=== PATIENT | female | born 1975 | race Caucasian/White ===

== ENCOUNTER 2016-11-13 18:52 | Inpatient (IN) | payer OTHER ==
[~2016-11-13] VITALS: Ht 162.6 cm; Wt 82.2 kg
--- NOTE | 2016-11-13 20:06 | NUR ---
RECEICED PT FROM [facility] FOR C/C OF BILAT LEG, BACK AND NECK PAIN. PT STATES THAT SHE STARTED TO HAVE BACK PAIN LAST FRIDAY THEN THE PAIN PROGESSED TO BOTH HER LEGS ON FRIDAY, SHE WENT TO HER DOCTOR AND FROM A CT SCAN THAT WAS DONE SHOWED LT KIDNEY CYST. PT WAS SENT HOME WITH PAIN MEDS BUT PAIN GROW PROGESSIVELY WORST AND WENT BACK TO HER DOCOTR AND DOCTOR INFORMED HER THAT SHE MAY POSSIBLY HAS MENIGITIS. PT IS A/O X4, SPEECH IS CLEAR AND ANSWERING QUESTION APPROPATELY. PT PLACED ON MONITOR, VS STABLE. WILL CONTINUE TO MONITOR.
[2016-11-13 20:52] LABS: BASOPHIL % 0.9 % (0-2); PLATELET COUNT 267 x10^3mcL (130-400); RED CELL DISTRIBUTION WIDTH 13.6 % (11.5-14.5)
[2016-11-13 20:58] LABS: UA SPECIFIC GRAVITY 1.025 (1.005-1.035); microscopic required? YES; urine erythrocyte TRACE (NEGATIVE)
[2016-11-13 21:09] LABS: CALCIUM 8.6 mg/dL (8.5-10.1); CARBON DIOXIDE 30.7 mmol/L (21-32); CHLORIDE SERUM 107 mmol/L (98-107); CREATININE SERUM 0.6 mg/dL (0.6-1.0); GFR1 > 60 mL/min; GLUCOSE SERUM 110 mg/dL (74-106); POTASSIUM SERUM 4.1 mmol/L (3.5-5.1); SODIUM SERUM 141 mmol/L (136-145)
[2016-11-13 21:14] LABS: ALBUMIN 3.5 g/dL (3.4-5.0); ALKALINE PHOSPHATASE 51 U/L (46-116); ALT/SGPT 13 U/L (14-59); AST/SGOT 10 U/L (15-37); BILIRUBIN TOTAL 0.4 mg/dL (0.20-1.00); TOTAL PROTEIN, SERUM 6.8 g/dL (6.4-8.2)
--- NOTE | 2016-11-13 21:35 | NUR ---
PT MEDICATED PER EMAR.
--- NOTE | 2016-11-13 23:13 | NUR ---
REPORT GIVEN TO MAYRA MORLEY. ALL QUESTIONS AND CONCERNS ADDRESSED AT THIS TIME.
[2016-11-13 23:30] VITALS: BP 129/51
--- NOTE | 2016-11-13 23:30 | NUR ---
RECEIVED PT FROM ED [facility]IA [facility], CAME IN DUE TO BACK PAIN THAT STARTED ON FRIDAY, THEN STARTED TO HAVE BLE PAIN ON FRIDAY AND NECK PAIN 2 DAYS AGO. AAOX4. C/O MILD DIZZINESS, MILD BLURRY VISION AND MILD SENSITIVITY TO LIGHT. NO SOB NOTED. DENIES CHEST PAIN/PRESSURE, SINUS BRADYCARDIA ON THE MONITOR. C/O MILD NAUSEA. K-PAD ON THE BACK. IV SITE PATENT AND INTACT. SIDE RAILS UPX2. CALL LIGHT ON REACH. ENDORSED
[2016-11-13 23:36] VITALS: Ht 162.6 cm; Wt 82.2 kg
--- NOTE | 2016-11-14 00:25 | NUR ---
PT C/O OF SEVERE BACK PAIN, MORPHINE 2MG VIA IVP ADMINISTERED.
[2016-11-14 00:48] LABS: CHOLESTEROL/HDL RATIO 3.1; MAGNESIUM 2.1 mg/dL (1.8-2.4); PHOSPHOROUS 3.7 mg/dL (2.5-4.9)
[2016-11-14 00:56] LABS: T3 TOTAL 0.98 ng/mL
[2016-11-14 01:13] LABS: FREE T4 0.94 ng/dL (0.76-1.46); FREE THYROXINE INDEX 2.7 ug/dL (1.4-4.5); T4(THYROXINE) 7.6 ug/dL (4.7-13.3)
--- NOTE | 2016-11-14 02:24 | NUR ---
ROUNDS MADE, PT ASLEEP, BREATHING EVEN AND UNLABORED, NO RESP DISTRESS NOTED, K-PAD IN PLACE.
--- NOTE | 2016-11-14 04:04 | NUR ---
PT AWAKE AND C/O OF SEVER BACK PAIN ALSO NAUSEOUS AT THIS TIME, DILAUDID 1MG AND ZOFRAN 4MG VIA IVP ADMINISTERED, WILL KEEP TO MONITOR.
--- NOTE | 2016-11-14 05:32 | NUR ---
PT ASLEEP BUT EASILY AROUSABLE, SLEPT ON AND OFF SINCE ADMITTED TO THE UNIT, K-PAD OFF THIS TIME PER PT REQUESTED, GAVE ONE TIME MORPHINE AND DILAUDID VIA IVP FOR BACK PAIN WITH GOOD RELIEF, NAUSEOUS AT TIMES, ZOFRAN GIVEN, NORCO AND FLEXERIL PO GIVEN THIS MORNING, NO DISTRESS NOTED, WILL KEEP TO MONITOR.
[2016-11-14 05:45] VITALS: BP 91/44
--- NOTE | 2016-11-14 07:30 | NUR ---
PATIENT AOX4, DENIES HEADACHE AT THIS TIME, SPEECH CLEAR ABLE TO MAKE NEEDS KNOWN. TELE 4, DENIES CP. LUNGS CTA, NO RESP DISTRESS NOTED ON RA. PERIPHERAL PULSES PALPABLE. BOWEL SOUNDS ACTIVE. KPAD NOTED TO BACK, STATES BACK PAIN RADIATING TO LOWER EXTREMITIES BUT TOLERABLE AT THIS TIME MEDICATIONS GIVEN DURING PRIOR SHIFT EFFECTIVE. SKIN INTACT. IV ACCESS TO RAC RUNNING NS INFUSING WELL SITE WNL CALL LIGHT WITHIN REACH.
[2016-11-14 08:41] VITALS: BP 96/45
--- NOTE | 2016-11-14 09:30 | NUR ---
DR PRICE AND MEDICAL TEAM AT BEDSIDE, INFORMED PATIENT THAT SHE WILL BE SEEN BY OMM DR MAN. PATIENT VERBALIZED UNDERSTANDING.
[2016-11-14 12:57] VITALS: BP 107/59
--- NOTE | 2016-11-14 16:38 | NUR ---
PATIENT STATES OMM DONE BY DOCTOR BUT NOW FEELING HEADACHE PAIN IN BACK OF HEAD NOT RELIEVED BY FLEXERIL, GETTING WORSE, AND PAIN TO LEGS. NORCO GIVEN. DR SHARMA MADE AWARE, STATES WILL ORDER LUMBAR PUNCTURE.
[2016-11-14 17:15] VITALS: BP 109/57
--- NOTE | 2016-11-14 18:15 | NUR ---
DR SOLIS AT BEDSIDE. PATIENT STATES NORCO EFFECTIVE FOR LEG PAIN AND HEADACHE BUT STILL SOME PERSISTENT HEADACHE. ALSO C/O CONSTIPATION. DR ORDERED CT HEAD AND MIRALAX/SENOKOT. WILL CONT TO MONITOR AND ENDORSE TO ABY NUNEZ.
[2016-11-14 20:00] VITALS: BP 108/55
--- NOTE | 2016-11-14 20:00 | NUR ---
PATIENT RECEIVED IN BED AWAKE,ALERT AND ORIENTED X4, SPEECH CLEAR, STILL COMPLAINED OF OFF AND ON HEADACHE, NECK PAIN AND STIFFNESS, PHOTOSENTIVE, OFF AND ON NAUSEA NO VOMITING.BREATHING EVEN AND UNLABORED BS CLEAR ALL AL, DENIES SOB, ON ROOM AIR SAT 98-99%. DENIES CHEST PAINS, HR=65BPM, RHYTHM REGULAR, TELE#4. ABDOMEN SOFT NON DISTENDED ACTIVE BS, STATED HAD BM, YESTERDAY, APPETITE FAIR. VOIDING FREELY, DENIES PAIN UPON URINATION. PATIENT STATED GENERALIZED WEAKNESS, ABLE TO TURN SELF IN BED INDEPENDENTLY. PATIENT INFORMED AND ADVICE TO CALL FOR ASSISTANCE WHEN NEEDS ARISES. SCD IN USE PEDAL PULSES STRONG, K=PAD IN USE TO HER BACK, COMPLAINED OF PAIN TO NECK,BACK WHCIH SHE RATED AT 3/10, WILL MONITOR. SAFETY/FALL PREC. MAINTAINED. PATIENT INFORMED ABOUT POC THIS SHIFT.
--- NOTE | 2016-11-14 21:20 | NUR ---
SCHEDULED MEDS ADMINISTERED,PATIENT INFORMED ABOUT EACHE MEDS ACTIONS AND PURPOSE PRIOR. ALSO COMPLAINED OF HEADACHE AND NECK, BACK PAIN RATED AT 5/10, THROBBING. MADE COMFORTABLE AND MEDICATED PRN.
[2016-11-14 21:26] VITALS: BP 100/56
--- NOTE | 2016-11-14 22:10 | NUR ---
CHECKED EFFECTIVENESS OF PAIN MEDS GIVEN, PATIENT SLEEPING BUT EASILY AWAKEN VERBALLY, STATED PAIN SUBSIDED TO 2/10, TOLERABLE. MADE COMFORTABLE IN BED. WILL CONTINUE TO MONITOR.
--- NOTE | 2016-11-14 23:41 | NUR ---
PATIENT ELIZA CALLED AND WANTED AND UPDATE OF HER 'S CONDITION,DR NEGRO MADE AWARE ABOUT THIS REQUEST.
--- NOTE | 2016-11-15 | NUR ---
ROUNDS MADE PATIENT RESTING COMFORTABLY THIS TIME NO S/S OF DISTRESS. EASILY AWAKEN WHEN NAME CALLED. OFFERED NO COMPLAINTS THIS TIME, PAIN REMAINED AT 2/10 . INFORMED ABOUT PAIN MANAGEMENT. SAFETY PREC MAINTAINED, SB ON THE MONITOR. HR ON THE HIGH 50'S. WILL CONTINUE TO MONITOR.
--- NOTE | 2016-11-15 04:33 | NUR ---
PATIENT COMPLAINED OF NECK, LOWER BACK PAIN, RATED AT 6/10, REQUESTED FOR NORCO TAB. MEDICATED PER PRN AND MADE COMFORTABLE IN BED. WILL CHECK EFFECTIVENESS.
[2016-11-15 05:18] VITALS: BP 107/59
--- NOTE | 2016-11-15 06:25 | NUR ---
PATIENT SLEPT WELL AND RESTED GOOD DURING THE SHIFT PER STATED. WAS MEDICATED X2 WITH NORCO FOR COMPLAINT OF BACK/NECK PAIN AND HEADACHE RECEIVED RELIEF, STILL COMPLAINED OF PHOTOSENSITIVITY. IV SITE NO SIGN OF INFILTRATION. SB-SR ON THE MONITOR. SAFETY/FALL PRECAUTIONS OBSERVED AND MAINTAINED. WILL ENDORSE CONTINUITY OF CARE TO INCOMING NURSE.
[2016-11-15 06:38] LABS: BASOPHIL % 0.7 % (0-2); CHLORIDE SERUM 108 mmol/L (98-107); CREATININE SERUM 0.6 mg/dL (0.6-1.0); GFR1 > 60 mL/min; GLUCOSE SERUM 79 mg/dL (74-106); PLATELET COUNT 209 x10^3mcL (130-400); POTASSIUM SERUM 4.3 mmol/L (3.5-5.1); RED CELL DISTRIBUTION WIDTH 13.5 % (11.5-14.5); SODIUM SERUM 142 mmol/L (136-145)
--- NOTE | 2016-11-15 07:16 | NUR ---
BEDSIDE REPORT AND INTRODUCTION PERFORMED WITH INCOMING NURSE MIGUELITO MOJICA.
--- NOTE | 2016-11-15 08:00 | NUR ---
PATIENT RECEIVED ALERT AND ORIENTED TIMES FOUR. PATIENT HAS BEEN RECEIVING NORCO FOR PAIN AND EFFECTIVE AT THIS TIME. PATIENT HAS BEEN OOB AND SHE HAS INTERMITTANT DIZZINESS AND HEADACHE. LUNGS ARE CLEAR AND ARE DIMINISHED BREATH SOUNDS. VITALS AT THIS TIME AT 97.1, 60, 18, 107/59, 96%. PATIENT HAS NOTED LABS OF BUN AT 6.0, GLUCOSE AT 110, AST AT 10, ALT AT 13, AND CA AT 8.0. PATIENT AHS NO STONES ON THE CT OF THE ABDOMEN AND IS NOTED WITH MODERATE STOOL IN THE COLON AND A SMAL RIGHT OVRIAN CYST. PATIENT HAS A MILD BULGING DISK TO THE L4-5, L5-S1. CT OF THE HEAD WAS NEGATIVE. PATIENT HAS HISTORY OF THREE SURGERIES TO THE RIGHT WRIST AND A C SECTION. SHE HAS BEEN ON REGULAR DIET AND TOLERATED WELL. WILL CONTINUE TO MONITOR INDICATED. PLACED ON ISOLATION FOR PRECAUTION OF POSSIBLE MENINGITIS INFECTION PER NURSING PROTOCAL.
--- NOTE | 2016-11-15 08:30 | NUR ---
SEEN BY THE INTERNS AND DR CORREA AND PLAN OF CARE DISCUSSED.
[2016-11-15 10:00] VITALS: BP 122/59
--- NOTE | 2016-11-15 10:39 | NUR ---
PATIENT OUT OF BED WITH PT. SHE WAS WALKING AND FELT FAINT AND DIZZY. SHE HAS HAD VITALS AT BP AT 122/67. PATIENT PUT BACK TO BED. PATIENT WITH SIGNIFICANT OTHER AT BEDSIDE AND SUPPORTIVE [facility]. IV INTACT AND PATIENT HAS TOLERATE DIET AND FLUIDS WELL. SHE DENIES PAIN AT THIS TIME. LUNGS ARE CLEAR BUT DIMMINSHED AND BOWEL SOUNDS. DENIES HAVING A STOOL AND STATES SHE HAD SOME KIND OF POWDER MIXED IN WATER FOR THIS BUT WAS NOT EFFECTIVE. PATIENT HAS BEEN ADVISED BY HER PRIMARY DOCTOR THAT SHE BALTAZAR BE HAVING A LUMBAR PUNCTURE HE DID NOT DO PRIOR THE HOSPITALIZATION. PLACE THE PATIENT ON ISOLATION FOR PRECAUTIONARY REASONS AND WILL AWAIT THE PROCEDURE TO BE DONE AND THE RADIOLOGIST TO DO. THE RADIOLOGIST WILL BE IN HOUSE AT 1100AM. VITALS AT THIS TIME ARE STABLE. SHE DENIES ISSUES WHILE IN BED.
--- NOTE | 2016-11-15 11:29 | NUR ---
DOWN FOR PROCEDURE AT THIS TIME. CALLED THE SPRINKLER TENDER TO REMIND TO HAVE ANY ORDER FOR THE SPINAL FLUID ORDERED FOR THE SPECIMEN INDICATED. PATIENT IS WITH SIGNIFICANT OTHER AT BEDSIDE AND SUPPORTIVE WITH CARE.
[2016-11-15 13:03] LABS: TOTAL PROTEIN CSF 26.7 mg/dL (15-45)
[2016-11-15 13:10] LABS: APPEARANCE CSF CLEAR; COLOR CSF COLORLESS; RBC CSF 6 /cumm (0); WBC CSF 1 /cumm (0-5)
[2016-11-15 13:57] VITALS: BP 106/59
--- NOTE | 2016-11-15 15:19 | NUR ---
PHYSICAL THERAPY DAILY NOTES CO-SIGN All documentation done by the Groundskeeping Maintenance Worker/STUDENT for 11/15/16 has been reviewed. I agree with the documentation. Reviewed/Co-Signed by: Ciro Langley PT Documentation Done by:WILMA BERNAL SPTA POC REVIEWED W/ SPORTS PSYCHOLOGIST, SPTA; [employer].
[2016-11-15 17:25] VITALS: BP 136/61
--- NOTE | 2016-11-15 17:59 | NUR ---
CONTINUE DTO LIE FLAT PER PROTOCAL FOR SPINAL TAP. PATIENT WAS ABLE TO URINATE IN THE BEDPAN AND TO EAT MINIMAL OF THE DIET. PATIENT HAS NO COMPLAINTS OF PAIN TO THE BACK AT THIS TIME. PATIENT WILL BE CONTINUED TO MONITORED. NORCO WAS EFFECTIVE AT THIS TIME.
[2016-11-15 19:51] VITALS: BP 109/52
--- NOTE | 2016-11-15 19:55 | NUR ---
PATIENT RECEIVED IN BED AWAKE,ALERT AND ORIENTED X4, SPEECH CLEAR, STILL WITH OFF AND ON ACHING AND THROBBING HEADACHE, NO BLURRY VISION, PHOTOSENSITIVITY PERSIST AND SLIGHT STIFF NECK PER PATIENT, S/P LP TODAY, BAND AID IN BACK INTACT AND SITE NO FLUIDS NOR BLEEDING NOTED. FALT THIS TIME.NO RESP. DISTRESS BREATHING EVEN AND UNLABORED, BS CLEAR, ON RA SAT 97%, DENIES CHEST PAINS, HR=70BPM, RHYTHM REGULAR, TELE #4. IV SITE TO RFA PATENT AND INTACT, PREVIOUS SITE LAC SWOLLEN ELEVATED AND APPLIED COLD COMPRESS. STILL COMPLAINED OF MILD GENERALIZED WEAKNESS AND PAIN TO BLE , BACK AND NECK, RATED AT 3/10 THIS TIME TOLERABLE, INFORMED ABOUT PAIN MANAGEMENT. LAST BM 11/13/16, NO BM TODAY, APPETITE POOR. SAFETY/FALL PREC MAINTAINED. DROPLET ISOLATION OBSERVED. WILL CONTINUE TO MONITOR.
--- NOTE | 2016-11-15 20:32 | NUR ---
SCHEDULED MEDS ADMINISTERED THIS TIME, INFORMED ABOUT EACH MEDS ACTIONS AND PURPOSE PRIOR. TOOK MED WITHOUT DIFF. ALSO COMPLAINED OF NECK, BACK BLE PAIN RATED NOW AT 5/10, MADE COMFORTABLE IN BED AND MEDICATED PRN. WILL CHECK EFFECTIVENESS.
--- NOTE | 2016-11-15 21:32 | NUR ---
CHECKED EFFECTIVENESS OF PAIN MEDS GIVEN EARLIER PATIENT SLEEPING BUT EASILY AWAKEN VERBALLY STATED PAIN IS SLOWLY SUBSIDING RATED AT 2/10, MADE COMFORTABLE. WILL CONTINUE TO MONITOR.
[2016-11-15 21:48] VITALS: BP 103/48
--- NOTE | 2016-11-16 00:19 | NUR ---
PATIENT CALLED AND COMPLAINED OF THROBBING HEADACHE, CHECKED BN=144/64 MAP (820, HR=58BPM. SAT 98%. MADE COMFORTABLE AND MEDICATED PRN . WILL CHECK EFFECTIVENESS.
--- NOTE | 2016-11-16 00:35 | NUR ---
SLEEPING COMFORTABLY THIS TIME, AWAKEN STATED HEADACHE IS BETTER 1/10.
--- NOTE | 2016-11-16 04:00 | NUR ---
PATIENT SLEEPING QUIETLY AND COMFORTABLY THIS TIME NO DISTRESS NOTED. WILL CONTINUE TO MONITOR.
[2016-11-16 05:35] VITALS: BP 100/51
--- NOTE | 2016-11-16 05:35 | NUR ---
COMPLAINED OF BACK AND BLE PAIN, RATED AT 5/10, MADE COMFORTABLE AND MEDICATED PRN. WILL MONITOR EFFECTIVENESS.
[2016-11-16 06:00] LABS: BASOPHIL % 0.9 % (0-2); PLATELET COUNT 222 x10^3mcL (130-400); RED CELL DISTRIBUTION WIDTH 13.2 % (11.5-14.5)
--- NOTE | 2016-11-16 06:22 | NUR ---
PATIENT HAD A RESTFUL AND QUIET NIGHT, MEDICATED PRN FOR BACK, BLE AND NECK, AND MANUEL WITH RELIEF. IV SITE NO SIGN OF INFILTRATION. LP SITE TO THE BACK WITH BAND AID CLEAN AND DRY. NO N/T SENSATION TO BLE. DENIES PHOTOSENSITIVITY THIS AM. NSR-SB ON THE MONITOR. DROPLETS PRECAUTION OBSERVED. WILL ENDORSE CARE TO INCOMING NURSE.
--- NOTE | 2016-11-16 07:08 | NUR ---
BEDSIDE REPORT AND INTRODUCTION PERFORMED WITH INCOMING NURSE ZACHERY.
--- NOTE | 2016-11-16 08:00 | NUR ---
PATIENT RECEIVED ALERT AND ORIENTED TIMES FOUR. PATIENT WITH CLEAR BREATH SOUNDS AND SOME EDEMA TO THE LOWER EXTREMITIES NOTED. PATIENT HAS HAD INTERMITTANT PAIN TO THE BACK AND HEAD. [place] THAS BEEN OOB BUT STILL WITH INTERMITTANT DIZZINESS AND WEAKNESS. PATIENT HAS NOTED LP RESULTS AND WAS ONLY THE WBC BUT NOW PATIENT HAS FULL RESULTS AND THE TESTING IS NEGATIVE. VITALS AT THIS TIME AT 96.7, 52, 18, 100/51, 96% ON ROOMARI ;AITEN WITH CT OF THE HEAD NEGATIVE AND IV REMAINS INTACT AT 100CC PER HOUR. PATEINT HAS HYPOACTIVE BOWEL SOUNDS AND HAS NOT HAD A BM SO FAR. GAVE MIRALAX, COLACE AND SENOKOT INDICATED. PATIENT HAS NO REQUEST FOR PAIN MEDICATION AT THIS TIME BUT HAS HAD NORCO OVER NIGHT WELL MORPHINE. 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 ANA ROSA PALOMINO HSITORY OF THREE SURGERIES TO THE RIGHT WRIST WELL. SHE HAS HAD A C SECTION. THE IV THAT INFILTRATED YESTERDAY IS WITH SOME MODERATE SWELLING STILL BUT SEEMS TO BE REDUCED ALOT AND NO REDNESS AT THIS TME. ;ATIENT HAS BEEN ON 100CC PER HOUR AND PATIENT HAS BEEN URINATING AND PASSING GAS. POOR INTAKE OF DIET NOTED. GAVE ALL MEDICATIONS AND ENCOURAGE INTAKE OF DIET AND FLUIDS INDICATED.
--- NOTE | 2016-11-16 09:15 | NUR ---
SEEN BY THE INTERNS AND DR MAC AND PLAN OF CARE DISCUSSED WITH POSSIBLE DISCHARGE HOME TODAY.
[2016-11-16 09:31] VITALS: BP 119/65
--- NOTE | 2016-11-16 09:31 | NUR ---
NO STOOL YET AND OFFERED MIRALAX AND SENOKOT INDICATED. WILL MONITOR FOR EFFCTIVENESS. NO COMPLAINTS OF HEADACHE AT THIS TIME.
[2016-11-16 13:50] VITALS: BP 115/54
--- NOTE | 2016-11-16 14:49 | NUR ---
PATIENT INFORMED SHE IS GOING HOME TODAY. THE INTERNS BELIEVES THE PATIENT HAS PAIN DUE TO BULGING DISK. PATIENT GIVEN NORCO AND WILL MONITOR FOR EFFECTIVENESS.
--- NOTE | 2016-11-16 15:04 | NUR ---
PHYSICAL THERAPY DAILY NOTES CO-SIGN All documentation done by the Assembly And Packing Supervisor for 11/16/16 has been reviewed. I agree with the documentation. Reviewed/Co-Signed by: Ciro Langley PT Documentation Done by:LORETO BLANDON PACKING ROOM INSPECTOR POC REVIEWED W/ PACKING ROOM INSPECTOR; PROGRESSED W/ GAIT ENDURANCE & FUNC MOB. 11/15/16 LUMBAR PUNCTURE.
--- NOTE | 2016-11-16 15:36 | NUR ---
AWAITING DISCHARGE ORDERS AT THIS TIME. PATIENT DENIES ANY ACUTE PAIN.
--- NOTE | 2016-11-16 16:29 | NUR ---
DENIES PAIN AND IS ANXIOUS TO GO HOME. STILL AWAITING ORDERS INDICATED.
--- NOTE | 2016-11-16 16:41 | NUR ---
PATIENT ANXIOUS TO GO HOME AND NO ORDERS HAVE BEEN RECEIVED YET. PATIENT IS AWARE SHE IS TO GO HOME AND SHE IS WAITING FOR THE FINALLY PAPERWORK TO BE RECIEVED.
[2016-11-16 16:47] VITALS: BP 115/54
[2016-11-16] MEDS ORDERED: APAP/HYDROCODON1 T13 PO (17:20)
--- NOTE | 2016-11-16 18:58 | NUR ---
DISCHARGE TO HOME ORDERED WITH ALL BELONGINS. NO ACUTE DISTRESS AT TIME OF DISCHARGE.
== END 2016-11-16 17:50 | disposition home or self-care (01) | DRG 552 ==
LOC: ED 18:52 → DU 22:46
PROVIDERS: Emergency Medicine; ADMIT Family Medicine
PROC: 009U3ZX Drainage of Spinal Canal, Percutaneous Approach, Diagnostic (ICD-10-PCS; principal; 2016-11-15)
PROC: B01B1ZZ Fluoroscopy of Spinal Cord using Low Osmolar Contrast (ICD-10-PCS; 2016-11-15)
DX: M51.26 Other intervertebral disc displacement, lumbar region (principal); N83.201 Unspecified ovarian cyst, right side; K59.00 Constipation, unspecified; G43.909 Migraine, unspecified, not intractable, without status migrainosus; Z68.31 Body mass index [BMI] 31.0-31.9, adult
CPT/HCPCS: 62272; 84439; 86788; 86789; 97110-GP; 97116-GP; 97530-GP; J1170; J2270; J2405; J7030; Q0092